=== PATIENT | female | born 1990 | race Caucasian/White ===

== ENCOUNTER 2016-10-13 08:38 | Emergency (ER) | payer OTHER ==
[~2016-10-13 08:38] MED LIST: KLONOPIN0.5 M1 PO; PRILOSEC OTC20 M1 PO; SPRINTEC 28 DA1 EACH PO; TOPAMAX50 M3 PO; ZOLOFT50 M1 PO
[2016-10-13] MEDS ORDERED: PHENTERMINE HCL30 M1 PO (08:48)
[2016-10-13] MEDS ORDERED: VITAMIN D PO (08:49)
== END 2016-10-13 09:25 ==
LOC: EDMED 08:38
DX: S29.012A Strain of muscle and tendon of back wall of thorax, initial encounter (principal); S13.4XXA Sprain of ligaments of cervical spine, initial encounter; G40.909 Epilepsy, unspecified, not intractable, without status epilepticus; K21.9 Gastro-esophageal reflux disease without esophagitis; V49.40XA Driver injured in collision with unspecified motor vehicles in traffic accident, initial encounter; Y92.410 Unspecified street and highway as the place of occurrence of the external cause